=== PATIENT | female | born 1960 | race Caucasian/White ===

== ENCOUNTER → 2019-01-05 | Outpatient (CLI) | payer BC | END | disposition home or self-care (01) | LOC: RAH 11:43 | PROVIDERS: ATTEND Internal Medicine Critical Care Medicine | DX: S62.63 Displaced fracture of distal phalanx of finger (principal); M19.041 Primary osteoarthritis, right hand; X58.XXXS Exposure to other specified factors, sequela | CPT/HCPCS: 73130 ==